=== PATIENT | male | born 1990 | race Caucasian/White ===

== ENCOUNTER 2023-06-09 14:52 | Outpatient (OUT) | payer BC, SELFPAY ==
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
== END 2023-06-09 14:53 | disposition home or self-care (01) ==
PROVIDERS: Visit Provider Podiatrist Foot & Ankle Surgery
DX: M79.672 Pain in left foot (principal)
CPT/HCPCS: 73630

== ENCOUNTER 2024-05-02 15:04 | Emergency (ER) | payer BC, SELFPAY ==
[2024-05-02 15:13] VITALS: BP 152/90; PULSE 78; O2SAT 99; BMI 29.0
--- OUTSIDE RECORDS SUMMARY | 2024-05-02 15:24 | XMS_ITS | CCD ---
Author Organization [facility] Inform ion Partnership [facility] Care Team Providers Care Family Resource Coordinator Name Role Phone HOY, NAVNEET Unavailable Unavailable HOY, NAVNEET Unavailable Unavailable HOY, NAVNEET Unavailable Unavailable HOY, NAVNEET Unavailable Unavailable HOY, NAVNEET Unavailable Unavailable Problems Problem Classification Problem Date Documented Date Episodic/Chronic Gastritis and duodenitis (4 sources) Gastritis, unspecified, without bleeding; Translations: [GASTRITIS UNS WITHOUT BLEEDING] Onset: 07-09-2018 Episodic Headache; including migraine (1 source) Headache; Translations: [HEADACHE] Onset: 07-22-2018 Episodic Noninfectious gastroenteritis (1 source) Noninfective gastroenteritis and colitis, unspecified; Translations: [NONINFECTIVE GE AND COLITIS UNS] Onset: 07-22-2018 Episodic Results Test Name Value Interpretation Reference Range Facil ity XR chest 1Von 08-29-2021 XR chest 1V [facility] Main [place] [id number] XRay Report Signed Patient: Adama Morocho MR#: [id number] : 1990 Acct:[id number] Age/Sex: 31 / M ADM Date: 08/29/21 Loc: [place] Room: Type: REG REF Attending Dr: Demian Uriarte Jr, DO Ordering Provider: Demian Uriarte DO Date of Service: 08/29/21 XR/XR chest 1V: EMPLOYMENT PHYSICAL Copies to: Demian Uriarte DO PA CHEST: CLINICAL HISTORY: Employment physical COMPARISON: None The heart is normal in size. The lungs are clear. No free air. XR/XR chest 1V IMPRESSION: NEGATIVE CHEST. Impression dictated by: Jose A Shane Jr., D.OGurpreet08/29/2021 2:32 PM Dictation Location: [place] [address] Transcribed By: [facility] 08/29/211431 Dictated By: Jose A Shane Jr, DO 08/29/21 143 Signed By: 08/29/21 143 [facility] AMYLASEon 07-09-2018 Amylase enzyme act/vol 60 U/L Normal 31-110 [facility] Comment on above: Performed By: #### C MP, LIPA, DEVAUGHN, TSH, T7 ####[facility] [address] [place], [place] [address]Xufypu Rhonda CBC AUTO DIFFon 07-09-2018 Basophils Auto #/vol (Bld) 0.0 103/ul Normal 0.0-0.1 [facility] Comment on above: Performed By: #### C BC ####[facility] [address] [place] [address]Twjlxe Rhonda Basophils/100 WBC Auto (Bld) 0.4 % Normal 0.2-2.0 [facility] Comment on above: Performed By: #### C BC ####[facility] [address] [place] [address]Whieae Rhonda Eosinophils Auto #/vol (Bld) 0.2 103/ul Normal 0.0-0.7 [facility] Comment on above: Performed By: #### C BC ####[facility] [address] [place] [address]Fznmss Rhonda Eosinophils/100 WBC Auto (Bld) 2.1 % Normal 0.9-7.0 [facility] Comment on above: Performed By: #### C BC ####[facility] [address] [place], [place] [address]Qksbku Rhonda Erythrocyte distribution width Auto Ratio (RBC) 12.8 % Normal 11.0-15.0 [facility] Comment on above: Performed By: #### C BC ####[facility] [address] [place] [address]Freoap Rhonda Hematocrit Auto Volume Fraction (Bld) 42.9 % Normal 42.0-54.0 [facility] Comment on above: Performed By: #### C BC ####[facility] [address] [place] [id number] Rhonda Hemoglobin mass conc (Bld) 15.3 g/dL Normal 14.0-18.0 [facility] Comment on above: Performed By: #### C BC ####[facility] [address] [place] [id number] Rhonda IG # 0.02 10e3/ul Normal 0.00-0.03 [facility] Comment on above: Performed By: #### C BC ####[facility] [address] [place] [address] Rhonda IG % 0.3 % Normal 0.0-0.5 [facility] Comment on above: Performed By: #### C BC ####[facility] [address] [place] [address] Rhonda Lymphocytes Auto #/vol (Bld) 2.3 103/ul Normal 1.2-3.8 [facility] Comment on above: Performed By: #### C BC ####[facility] [address] [place] [address] Rhonda Lymphocytes/100 WBC Auto (Bld) 32.0 % Normal 20.5-60.0 [facility] Comment on above: Performed By: #### C BC ####[facility] [address] [place] [address] Rhonda MANUAL DIFF REQ NO Normal [facility] Comment on above: Performed By: #### C BC ####[facility] [address] [place], [place] [address]Gerken Rhonda MCH Auto Entitic mass (RBC) 30.6 pg Normal 25.9-34.0 [facility] Comment on above: Performed By: #### C BC ####[facility] [address] [place] [address] Rhonda MCHC Auto mass conc (RBC) 35.7 g/dL Critically high 29.9-35.2 [facility] Comment on above: Performed By: #### C BC ####[facility] [address] [place], [place] [address]Qndwfb Rhonda MCV Auto Entitic volume (RBC) 85.8 fL Normal 80.0-94.0 [facility] Comment on above: Performed By: #### C BC ####[facility] [address] [place] [address]Sxxsou Rhonda Monocytes Auto #/vol (Bld) 0.7 103/ul Normal 0.3-0.8 [facility] Comment on above: Performed By: #### C BC ####[facility] [address] [place] [address]Csxhwd Rhonda Monocytes/100 WBC Auto (Bld) 9.5 % Normal 1.7-12.0 [facility] Comment on above: Performed By: #### C BC ####[facility] [address] [place] [address]Xcnixz Rhonda Neutrophils Auto #/vol (Bld) 4.0 103/ul Normal 1.4-6.5 [facility] Comment on above: Performed By: #### C BC ####[facility] [address] [place] [address]Ojlqsi Rhonda Neutrophils/100 WBC Auto (Bld) 55.7 % Normal 43.0-75.0 [facility] Comment on above: Performed By: #### C BC ####[facility] [address] [place] [address]Vojurg Rhonda Platelet mean volume Auto Entitic volume (Bld) 9.4 fL Critically low 9.5-13.5 [facility] Comment on above: Performed By: #### C BC ####[facility] [address] [place] [address]Czaiyq Rhonda Platelets Auto #/vol (Bld) 223 103/ul Normal 150-450 [facility] Comment on above: Performed By: #### C BC ####[facility] [address] [place] [address]Vfdyhz Rhonda RBC Auto #/vol (Bld) 5.00 106/ul Normal 4.70-6.10 [facility] Comment on above: Performed By: #### C BC ####[facility] U[address] WBC Auto #/vol (Bld) 7.2 103/ul Normal 4.0-11.0 [facility] Comment on above: Performed By: #### C BC ####[facility] [address] [place] [address] FREE THYROXINE INDEX T7on FTI 2.56 Normal [facility] Comment on above: Performed By: #### C MP, LIPA, DEVAUGHN, TSH, T7 ####[facility] [address] T3U 32.0 % Normal 23.5-40.5 [facility] Comment on above: Performed By: #### C MP, LIPA, DEVAUGHN, TSH, T7 ####[facility] [address] [place] [address] T4 8.00 ug/dL Normal 5.53-11.00 [facility] Comment on above: Performed By: #### C MP, LIPA, DEVAUGHN, TSH, T7 ####[facility] [address] [place] [address] GLYCOHEMOGLOBIN A1Con 2017 Glucose mass conc 97 mg/dL Normal [facility] Comment on above: Performed By: #### A 1C ####[facility] [address] [place] [address] Hemoglobin A1c/Hemoglobin.total mass fraction (Bld) 5.0 % Normal <=6.0 [facility] Comment on above: Performed By: #### A 1C ####[facility] [address] [place] [address] LIPASEon 07-09-2018 Lipase enzyme act/vol 192.0 U/L Normal 23.0-300.0 [facility] Comment on above: Performed By: #### C MP, LIPA, DEVAUGHN, TSH, T7 ####[facility] [address] [place], [place] [address]ken Rhonda PROF 14(COMP METB)on 018 Albumin mass conc 4.5 g/dL Normal 3.5-5.0 [facility] Comment on above: Performed By: #### C MP, LIPA, DEVAUGHN, TSH, T7 ####[facility] [address] Rhonda Albumin/Globulin mass ratio 1.5 {ratio} Normal [facility] Comment on above: Performed By: #### C MP, LIPA, DEVAUGHN, TSH, T7 ####[facility] Ttdmyszdfc7[address] Rhonda ALP enzyme act/vol 45 U/L Normal 38-126 [facility] Comment on above: Performed By: #### C MP, LIPA, DEVAUGHN, TSH, T7 ####[facility] Ywhflibcrz[address]64 [address] Rhonda ALT enzyme act/vol 45 U/L Normal 21-72 [facility] Comment on above: Performed By: #### C MP, LIPA, DEVAUGHN, TSH, T7 ####[facility] Rjzwzgrcgi8142 [address] Rhonda Anion gap 3 molar conc 11.7 mmol/L Normal [facility] Comment on above: Performed By: #### C MP, LIPA, DEVAUGHN, TSH, T7 ####[facility] Yolbtfvdxi5197 [address] Rhonda AST enzyme act/vol 26 U/L Normal 17-59 [facility] [place] [facility] Comment on above: Performed By: #### C MP, LIPA, DEVAUGHN, TSH, T7 ####[facility] Upjxalhdpg3350 [address] Rhonda Bilirubin Ql (U) 0.5 mg/dL Normal 0.2-1.3 [facility] Comment on above: Performed By: #### C MP, LIPA, DEVAUGHN, TSH, T7 ####[facility] [address] [place] [address]Gerken Rhonda Calcium mass conc 8.9 mg/dL Normal 8.4-10.2 [facility] Comment on above: Performed By: #### C MP, LIPA, DEVAUGHN, TSH, T7 ####[facility] Fpnhesoswg5684 [address] Rhonda Chloride molar conc 101 mmol/L Normal 98-107 [facility] Comment on above: Performed By: #### C MP, LIPA, DEVAUGHN, TSH, T7 ####[facility] Akup[address]jfuqm[address] Rhonda CO2 molar conc 26.5 mmol/L Normal 22.0-30.0 [facility] Comment on above: Performed By: #### C MP, LIPA, DEVAUGHN, TSH, T7 ####[facility] [address] [place] [address] Rhonda Creatinine mass conc 1.03 mg/dL Normal 0.66-1.25 [facility] Comment on above: Performed By: #### C MP, LIPA, DEVAUGHN, TSH, T7 ####[facility] Xplskzhzri[address] Rhonda EGFR-AF GRENADIAN >60 Normal >=60 [facility] Comment on above: Performed By: #### C MP, LIPA, DEVAUGHN, TSH, T7 ####[facility] Oyyrwrlwuo[address]353 [address] Rhonda EGFR-NON AF GRENADIAN >60 Normal >=60 [facility] Comment on above: Performed By: #### C MP, LIPA, DEVAUGHN, TSH, T7 ####[facility] Cejtziagpy[address]73 [address] Rhonda Globulin Calculated mass conc (S) 3.1 g/dL Normal [facility] Comment on above: Performed By: #### C MP, LIPA, DEVAUGHN, TSH, T7 ####[facility] Kabigp[address]uo[address] Rhonda Glucose mass conc 98 mg/dL Normal 74-106 [facility] Comment on above: Performed By: #### C MP, LIPA, DEVAUGHN, TSH, T7 ####[facility] Fzhavug[address]zs[address] Rhonda Potassium molar conc 4.2 mmol/L Normal 3.4-5.0 [facility] Comment on above: Performed By: #### C MP, LIPA, DEVAUGHN, TSH, T7 ####[facility] Oee[address]zt[address]14 [address] Rhonda Protein mass conc 7.6 g/dL Normal 6.1-8.2 [facility] Comment on above: Performed By: #### C MP, LIPA, DEVAUGHN, TSH, T7 ####[facility] Etdofuejdb[address] Rhonda Sodium molar conc 135 mmol/L Critically low 137-145 [facility] Comment on above: Performed By: #### C MP, LIPA, DEVAUGHN, TSH, T7 ####[facility] [address] [place] [address] Rhonda Urea nitrogen mass conc 18.0 mg/dL Normal 9.0-20.0 [facility] Comment on above: Performed By: #### C MP, LIPA, DEVAUGHN, TSH, T7 ####[facility] [address] [place] [address] Rhonda Urea nitrogen/Creatinine mass ratio 17.5 mg/mg Normal [facility] Comment on above: Performed By: #### C MP, LIPA, DEVAUGHN, TSH, T7 ####[facility] [address] [place] [address] Rhonda TSHon 07-09-2018 Thyrotropin Qn 1.741 uIU/mL Normal 0.470-4.680 [facility] Comment on above: Performed By: #### C MP, LIPA, DEVAUGHN, TSH, T7 ####[facility] [address] [place] [address] Rhonda Thyrotropin Qn SEE BELOW Normal [facility] Comment on above: Result Comment: <0.3 4 UIU/ml HYPERTHYROID 0.34-5.60 UIU/ml EUTHYROID >5.60 UIU/ml HYPOTHYROID Performed By: #### C MP, LIPA, DEVAUGHN, TSH, T7 ####[facility] [address] [place], [place] [address]XeeooeStacia Ellis Encounters Encounter Date Encounter Type Care Provider Facility Start: 07-09-2018 End: 07-10-2018 Patient encounter procedure NAVNEET MARTINEZ Facility:[facility] Start: 02-24-2018 Patient encounter procedure NAVNEET MARTINEZ Facility:[facility] Payers Date Payer Category Payer Unknown [id number] 1990 Unknown [id number] 1958 Private Health Insurance [id number] Summary Purpose Family History No Family History Records FoundNo Family History Records Found Advance Directives No Advanced Directives Records FoundNo Advanced Directives Records Found Additional Source Comments (unrecognized sect ion and content) No Status Records FoundNo Status Records Found INFORMATION SOURCE (unrecogn ized section and content) DATE CREATED AUTHOR 07/23/2018 [facility] DATE CREATED AUTHOR AUTHOR'S ORGANIZ ATION 09/30/2021 [facility] FOR RECORDS PERTAINING TO PATIENTS WHO ARE OR HAVE BEEN ENROLLED IN A CHEMICAL DEPENDENCY/SUBSTANCEABUSE PROGRAM, SOME INFORMATION MAY BE OMITTED. This clinical summary was aggregated from multiple sources. Caution should be exercised in using it in the provision of clinical care. This summary normalizes information from multiple sources, and as a consequence, information in this document may materially change the coding, format and clinical context of patient data. In addition, data may be omitted in some cases. CLINICAL DECISIONS SHOULD BE BASED ON THE PRIMARY CLINICAL RECORDS. [employer] provides no warranty or guarantee of the accuracy or completeness of information in this document.
[2024-05-02] MEDS: LIDOCAINE HCL 1%-EPINEPHRINE 1:100,000 20 ML MDV INJ (15:38)
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
[2024-05-02] MEDS: BACITRACIN 0.9 GM PACKET 1 PACKET TOPICAL (15:39)
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
== END 2024-05-02 16:30 | disposition home or self-care (01) ==
PROVIDERS: Emergency Provider Emergency Medicine; PCP Family Medicine
DX: S81.811A Laceration without foreign body, right lower leg, initial encounter (principal); W26.8XXA Contact with other sharp object(s), not elsewhere classified, initial encounter
CPT/HCPCS: 12002; 73590; 99284

== ENCOUNTER 2024-05-19 17:17 | Emergency (ER) | payer BC, SELFPAY ==
--- NOTE | 2024-05-19 17:18 | CT_ITS ---
[address] [address] Patient Name: MARCOS GONZALEZ MRN: [id number] date: 1990 Sex: M Assigned Patient Location: ER Current Patient Location: ER Accession/Order Number: [id number] Exam Date: 05/19/2024 17:49 Report Date: 05/19/2024 19:17 At the request of: BREE OSULLIVAN Procedure: CT abdomen pelvis w con Indication: Right lower quadrant pain. Comparison: None Procedure: Axial images were made from the diaphragms through the symphysis pubis. No oral was given prior to scanning. 100 mL Omnipaque 300 Intravenous contrast was given. Dose reduction techniques were achieved by using automated exposure control and/or adjustment of mA and/or kV according to patient size and/or use of iterative reconstruction technique. Findings: Liver/Biliary System: No liver masses. No intra or extrahepatic biliary dilatation. No gallstones or cholecystitis. Pancreas/Spleen: No evidence of acute pancreatitis. Pancreatic duct is not dilated. No pancreatic lesions are seen. No splenomegaly or splenic masses. Kidneys/Adrenals: Normal symmetrical nephrograms. No renal masses. No renal or ureteral stones are seen. No hydronephrosis or hydroureter bilaterally. No adrenal nodules. Aorta/Vessels: No evidence of aortic aneurysm. Patent IVC, renal veins, hepatic veins and portal venous system. Bowel/Fluid/Nodes: No bowel dilatation or bowel wall thickening. No evidence of bowel obstruction. Colonic diverticulosis with no evidence of diverticulitis. Normal appendix. No ascites or fluid collections. No adenopathy. Lung bases: Clear. Other findings: No aggressive osseous lesions are seen. Pelvis: No pelvic masses or adenopathy. No free fluid seen in the pelvis. Bladder, seminal vesicles and prostate are unremarkable. Other Findings: No aggressive osseous lesions are seen. CT/CT abdomen pelvis w con Impression: 1. No evidence of acute abdominal or pelvic process. No CT findings to explain patient's abdominal pain. 2. Colonic diverticulosis. Electronically authenticated by: ANA BOWEN Date: 05/19/2024 19:17
[2024-05-19 17:22] VITALS: BP 158/96; PULSE 77; TEMP 36.7; O2SAT 99; BMI 32.1
--- NOTE | 2024-05-19 17:30 | ED_ITS ---
HPI - Abdominal Pain General Chief Complaint: Abdominal Pain Stated Complaint: POSS APPENDICITIS-DR CORONA SENT OVER Time Seen by Provider: 05/19/24 17:18 Source: patient Mode of arrival: walk-in Limitations: no limitations History of Present Illness HPI narrative: Patient presents to ED complaining of right lower quadrant abdominal pain. He said the pain was hurting since today at work. He was going up and down ladders and ramps and started to feel the pain. He does not know if he strained something at work but he said the pain just would not really go away. He was trying to ignore it but it seemed to get a little more intense tonight. Patient saw Dr. Corona and Dr. Corona called and sent him over to rule out acute appendicitis. Patient does still have his appendix. He does not have any pain into the testi everardo. No flank pain. Mild nausea no vomiting. He denies any fevers. Alert and oriented no acute distress no other complaints at this time Related Data Previous Rx's ?Medication ?Instructions ?Recorded cephalexin 500 mg capsule 500 mg PO Q8H 10 days #30 caps 05/02/24 Allergies Allergy/AdvReac Type Severity Reaction Status Date / Time Penicillins AdvReac Severe Unknown Verified 05/02/24 15:13 Review of Systems ROS Status of ROS 10 or more systems reviewed and unremark able except as noted in history and below [facility] Social History Little interest or pleasure in doing things: not at all Feeling down, depressed, or hopeless: not at all Exam Narrative Exam Narrative: Time Seen: [] Vital Signs: [Per nurse's notes.] General: [Alert] Skin: [Warm, dry, no rash.] Head: [Normocephalic, atraumatic.] Neck: [Supple, trachea midline.] Eye: [Pupils are equal, round and reactive to light, extraocular movements are intact, normal conjunctiva.] Ears, nose, mouth and throat: oral mucosa moist. Cardiovascular: [Regular rate and rhythm, no murmur.] Respiratory: [Lungs are clear to auscultation, respirations are non-labored, breath sounds are equal.] Chest wall: [No tenderness, no deformity.] Gastrointestinal: Tenderness periumbilical and right lower quadrant. Positive Rovsing sign. Mild guarding MSK: 5 out of 5 muscle strength x 4 extremities no calf pain or edema Lymphatics: [No lymphadenopathy.] Psychiatric: [Cooperative, appropriate mood & affect.] Neurological: [Alert and oriented to person, place, time, and situation, no focal neurological deficit observed.] Constitutional Vital Signs, click to edit/add: Last Vital Signs Temp 98.1 F 05/19/24 17:22 Pulse 61 05/19/24 20:00 Resp 18 05/19/24 20:00 BP 143/91 H 05/19/24 20:00 Pulse Ox 98 05/19/24 20:00 O2 Del Method Room Air 05/19/24 20:00 Course Vital Signs Vital signs: Vital Signs Temperature 98.1 F 05/19/24 17:22 Pulse Rate 77 05/19/24 17:22 Respiratory Rate 18 05/19/24 17:22 Blood Pressure 158/96 H 05/19/24 17:22 Pulse Oximetry 99 05/19/24 17:22 Oxygen Delivery Method Room Air 05/19/24 17:22 Temperature 98.1 F 05/19/24 17:22 Pulse Rate 61 05/19/24 20:00 Respiratory Rate 18 05/19/24 20:00 Blood Pressure 143/91 H 05/19/24 20:00 Pulse Oximetry 98 05/19/24 20:00 Oxygen Delivery Method Room Air 05/19/24 20:00 MDM - Abdominal Pain MDM Narrative Medical decision making narrative: Patient was signed out to Dr. Goode pending final CT scan results and final disposition planning. Patient was stable when I left the ED. Disposition will depend on results of CT scan. Dr. Goode will follow Differential Diagnosis Differential diagnosis: Likely abdominal pain, acute appendicitis, calculus of kidney, constipation and diverticulitis Lab Data Labs: Lab Results 05/19/24 Range/Units 17:30 WBC 7.6 (4.0-11.0) 10^3/uL RBC 5.48 (4.70-6.10) 10^6/uL Hgb 16.9 (14.0-18.0) g/dL Hct 46.7 (42.0-54.0) % MCV 85.2 (80.0-94.0) fL MCH 30.8 (25.9-34.0) pg MCHC 36.2 H (29.9-35.2) g/dL RDW 12.5 (11.0-15.0) % Plt Count 258 (150-450) 10^3/uL MPV 9.6 (9.5-13.5) fL Neut % (Auto) 59.2 (43.0-75.0) % Lymph % (Auto) 30.7 (20.5-60.0) % [place] % (Auto) 8.8 (1.7-12.0) % Eos % (Auto) 0.9 (0.9-7.0) % Baso % (Auto) 0.3 (0.2-2.0) % Neut # (Auto) 4.5 (1.4-6.5) 10^3/uL Lymph # (Auto) 2.3 (1.2-3.8) 10^3/uL [place] # (Auto) 0.7 (0.3-0.8) 10^3/uL Eos # (Auto) 0.1 (0.0-0.7) 10^3/uL Baso # (Auto) 0.0 (0.0-0.1) 10^3/uL Abs Immat Gran (auto) 0.01 (0.00-0.03) 10^3/uL Imm/Tot Granulo (auto) 0.1 (0.0-0.5) % Sodium 139 (136-145) mmol/L Potassium 3.9 (3.5-5.1) mmol/L Chloride 103 (98-107) mmol/L Carbon Dioxide 23.9 (21.0-32.0) mmol/L Anion Gap 16.0 BUN 20.0 H (7.0-18.0) mg/dL Creatinine 1.19 (0.70-1.30) mg/dL Est GFR ( Amer) >60 (>=60 mL/min/1.73m^2) Est GFR (Non-Af Amer) >60 (>=60 mL/min/1.73m^2) BUN/Creatinine Ratio 16.8 Glucose 114 H (74-106) mg/dL Calcium 9.5 (8.5-10.1) mg/dL Total Bilirubin 0.4 (0.2-1.0) mg/dL AST 23 (15-37) U/L ALT 52 (16-63) U/L Alkaline Phosphatase 52 (46-116) U/L Total Protein 8.0 (6.4-8.2) g/dL Albumin 4.4 (3.4-5.0) g/dL Globulin 3.6 g/dL Albumin/Globulin Ratio 1.2 Discharge Plan Discharge Chief Complaint: Abdominal Pain Clinical Impression: Abdominal pain Patient Disposition: Home, Self-Care Time of Disposition Decision: 19:30 Condition: Good Prescriptions / Home Meds: No Action cephalexin 500 mg capsule 500 mg PO Q8H 10 Days Qty: 30 0RF Print Language: [place] Instructions: Abdominal Pain (ED) Referrals: Andre Corona MD [Primary Care Provider] - 1 week Discharge Date/Time: 05/19/24 20:00
[2024-05-19 17:50] LABS: Basophils Percent Auto 0.3 % (0.2-2.0); Eosinophils Absolute Auto 0.1 10^3/uL (0.0-0.7); Eosinophils Percent Auto 0.9 % (0.9-7.0); Hematocrit 46.7 % (42.0-54.0); Hemoglobin 16.9 g/dL (14.0-18.0); Immature Granulocytes Abs Auto 0.01 10^3/uL (0.00-0.03); Immature Granulocytes Pct Auto 0.1 % (0.0-0.5); Lymphocytes Absolute Auto 2.3 10^3/uL (1.2-3.8); Lymphocytes Percent Auto 30.7 % (20.5-60.0); Mean Corpuscular HGB Conc 36.2 g/dL (29.9-35.2); Mean Corpuscular Hemoglobin 30.8 pg (25.9-34.0); Mean Corpuscular Volume 85.2 fL (80.0-94.0); Mean Platelet Volume 9.6 fL (9.5-13.5); Monocytes Absolute Auto 0.7 10^3/uL (0.3-0.8); Monocytes Percent Auto 8.8 % (1.7-12.0); Neutrophils Absolute Auto 4.5 10^3/uL (1.4-6.5); Neutrophils Percent Auto 59.2 % (43.0-75.0); Platelet Count 258 10^3/uL (150-450); Red Blood Count 5.48 10^6/uL (4.70-6.10); Red Cell Distribution Width 12.5 % (11.0-15.0); White Blood Count 7.6 10^3/uL (4.0-11.0)
[2024-05-19 18:01] LABS: Alanine Aminotransferase 52 U/L (16-63); Albumin Globulin Ratio 1.2; Albumin Level 4.4 g/dL (3.4-5.0); Alkaline Phosphatase 52 U/L (46-116); Aspartate Amino Transferase 23 U/L (15-37); BUN Creatinine Ratio 16.8; Bilirubin Total 0.4 mg/dL (0.2-1.0); Calcium 9.5 mg/dL (8.5-10.1); Carbon Dioxide 23.9 mmol/L (21.0-32.0); Chloride 103 mmol/L (98-107); Estimated GFR (African America >60 (>=60 mL/min/1.73m^2); Estimated GFR (Non-African Ame >60 (>=60 mL/min/1.73m^2); Globulin 3.6 g/dL; Glucose 114 mg/dL (74-106); Potassium 3.9 mmol/L (3.5-5.1); Sodium 139 mmol/L (136-145)
--- NOTE | 2024-05-19 19:25 | ED_ITS ---
HPI - Abdominal Pain General Chief Complaint: Abdominal Pain Stated Complaint: POSS APPENDICITIS-DR CORONA SENT OVER Time Seen by Provider: 05/19/24 17:18 Source: patient Mode of arrival: walk-in Limitations: no limitations History of Present Illness HPI narrative: This 34-year-old male was signed out to me at shift change. He was referred to the emergency department from Dr. Corona's office for right lower quadrant a bdominal pain. He was seen and examined. He is well-appearing. He denies that he has had any anorexia. He has just had some pain in the right lower quadrant. He denies any nausea vomiting or diarrhea. I reviewed his labs. He has a normal white count. Electrolytes are normal. CT scan of the abdomen pelvis is included in the body of this report and shows normal findings including a normal appendix. The results of the CT scan were discussed with the patient and he was given a copy. He will be discharged home with a prescription for ibuprofen and Bentyl. Related Data Previous Rx's ?Medication ?Instructions ?Recorded cephalexin 500 mg capsule 500 mg PO Q8H 10 days #30 caps 05/02/24 Allergies Allergy/AdvReac Type Severity Reaction Status Date / Time Penicillins AdvReac Severe Unknown Verified 05/02/24 15:13 PFSH PFSH Social History Little interest or pleasure in doing things: not at all Feeling down, depressed, or hopeless: not at all Exam Constitutional Vital Signs, click to edit/add: Last Vital Signs Temp 98.1 F 05/19/24 17:22 Pulse 77 05/19/24 17:22 Resp 18 05/19/24 17:22 BP 158/96 H 05/19/24 17:22 Pulse Ox 99 05/19/24 17:22 O2 Del Method Room Air 05/19/24 17:22 Course Vital Signs Vital signs: Vital Signs Temperature 98.1 F 05/19/24 17:22 Pulse Rate 77 05/19/24 17:22 Respiratory Rate 18 05/19/24 17:22 Blood Pressure 158/96 H 05/19/24 17:22 Pulse Oximetry 99 05/19/24 17:22 Oxygen Delivery Method Room Air 05/19/24 17:22 Temperature 98.1 F 05/19/24 17:22 Pulse Rate 77 05/19/24 17:22 Respiratory Rate 18 05/19/24 17:22 Blood Pressure 158/96 H 05/19/24 17:22 Pulse Oximetry 99 05/19/24 17:22 Oxygen Delivery Method Room Air 05/19/24 17:22 MDM - Abdominal Pain MDM Narrative Medical decision making narrative: [place] [address] CT Scan Report Signed Patient: MARCOS GONZALEZ MR#: [id number] : 1990 Acct:[id number] Age/Sex: 34 / M ADM Date: 05/19/24 Loc: ER Attending Dr: Ordering Physician: Bree Hodgson D.O. Date of Service: 05/19/24 Procedure(s): CT abdomen pelvis w con Accession Number(s): [id number] cc: Andre Corona M.D.~ [facility] [place] [address] Patient Name: MARCOS GONZALEZ MRN: [id number] date: 1990 Sex: M Assigned Patient Location: ER Current Patient Location: ER Accession/Order Number: [id number] Exam Date: 05/19/2024 17:49 Report Date: 05/19/2024 19:17 At the request of: BREE HODGSON Procedure: CT abdomen pelvis w con Indication: Right lower quadrant pain. Comparison: None Procedure: Axial images were made from the diaphragms through the symphysis pubis. No oral was given prior to scanning. 100 mL Omnipaque 300 Intravenous contrast was given. Dose reduction techniques were achieved by using automated exposure control and/or adjustment of mA and/or kV according to patient size and/or use of iterative reconstruction technique. Findings: Liver/Biliary System: No liver masses. No intra or extrahepatic biliary dilatation. No gallstones or cholecystitis. Pancreas/Spleen: No evidence of acute pancreatitis. Pancreatic duct is not dilated. No pancreatic lesions are seen. No splenomegaly or splenic masses. Kidneys/Adrenals: Normal symmetrical nephrograms. No renal masses. No renal or ureteral stones are seen. No hydronephrosis or hydroureter bilaterally. No adrenal nodules. Aorta/Vessels: No evidence of aortic aneurysm. Patent IVC, renal veins, hepatic veins and portal venous system. Bowel/Fluid/Nodes: No bowel dilatation or bowel wall thickening. No evidence of bowel obstruction. Colonic diverticulosis with no evidence of diverticulitis. Normal appendix. No ascites or fluid collections. No adenopathy. Lung bases: Clear. Other findings: No aggressive osseous lesions are seen. Pelvis: No pelvic masses or adenopathy. No free fluid seen in the pelvis. Bladder, seminal vesicles and prostate are unremarkable. Other Findings: No aggressive osseous lesions are seen. CT/CT abdomen pelvis w con Impression: 1. No evidence of acute abdominal or pelvic process. No CT findings to explain patient's abdominal pain. 2. Colonic diverticulosis. Electronically authenticated by: ANA BOWEN Date: 05/19/2024 19:1 Lab Data Labs: Lab Results 05/19/24 Range/Units 17:30 WBC 7.6 (4.0-11.0) 10^3/uL RBC 5.48 (4.70-6.10) 10^6/uL Hgb 16.9 (14.0-18.0) g/dL Hct 46.7 (42.0-54.0) % MCV 85.2 (80.0-94.0) fL MCH 30.8 (25.9-34.0) pg MCHC 36.2 H (29.9-35.2) g/dL RDW 12.5 (11.0-15.0) % Plt Count 258 (150-450) 10^3/uL MPV 9.6 (9.5-13.5) fL Neut % (Auto) 59.2 (43.0-75.0) % Lymph % (Auto) 30.7 (20.5-60.0) % [place] % (Auto) 8.8 (1.7-12.0) % Eos % (Auto) 0.9 (0.9-7.0) % Baso % (Auto) 0.3 (0.2-2.0) % Neut # (Auto) 4.5 (1.4-6.5) 10^3/uL Lymph # (Auto) 2.3 (1.2-3.8) 10^3/uL [place] # (Auto) 0.7 (0.3-0.8) 10^3/uL Eos # (Auto) 0.1 (0.0-0.7) 10^3/uL Baso # (Auto) 0.0 (0.0-0.1) 10^3/uL Abs Immat Gran (auto) 0.01 (0.00-0.03) 10^3/uL Imm/Tot Granulo (auto) 0.1 (0.0-0.5) % Sodium 139 (136-145) mmol/L Potassium 3.9 (3.5-5.1) mmol/L Chloride 103 (98-107) mmol/L Carbon Dioxide 23.9 (21.0-32.0) mmol/L Anion Gap 16.0 BUN 20.0 H (7.0-18.0) mg/dL Creatinine 1.19 (0.70-1.30) mg/dL Est GFR ( Amer) >60 (>=60 mL/min/1.73m^2) Est GFR (Non-Af Amer) >60 (>=60 mL/min/1.73m^2) BUN/Creatinine Ratio 16.8 Glucose 114 H (74-106) mg/dL Calcium 9.5 (8.5-10.1) mg/dL Total Bilirubin 0.4 (0.2-1.0) mg/dL AST 23 (15-37) U/L ALT 52 (16-63) U/L Alkaline Phosphatase 52 (46-116) U/L Total Protein 8.0 (6.4-8.2) g/dL Albumin 4.4 (3.4-5.0) g/dL Globulin 3.6 g/dL Albumin/Globulin Ratio 1.2 Discharge Plan Discharge Chief Complaint: Abdominal Pain Clinical Impression: Abdominal pain Patient Disposition: Home, Self-Care Time of Disposition Decision: 19:30 Condition: Good Prescriptions / Home Meds: No Action cephalexin 500 mg capsule 500 mg PO Q8H 10 Days Qty: 30 0RF Print Language: Finnish Instructions: Abdominal Pain (ED) Referrals: Andre Corona MD [Primary Care Provider] - 1 week
[2024-05-19 20:00] VITALS: BP 143/91; PULSE 61; O2SAT 98
== END 2024-05-19 20:00 | disposition home or self-care (01) ==
PROVIDERS: Emergency Medicine; Emergency Provider Emergency Medicine; PCP Family Medicine
DX: R10.9 Unspecified abdominal pain (principal)
CPT/HCPCS: 36415; 74177; 80053; 85025; 99285; Q9967

== ENCOUNTER 2024-12-14 08:56 | Outpatient (OUT) | payer BC, SELFPAY ==
[2024-12-14 07:33] LABS: Basophils Percent Auto 0.5 % (0.2-2.0); Eosinophils Absolute Auto 0.1 10^3/uL (0.0-0.7); Eosinophils Percent Auto 1.4 % (0.9-7.0); Hemoglobin 15.5 g/dL (14.0-18.0); Immature Granulocytes Abs Auto 0.01 10^3/uL (0.00-0.03); Immature Granulocytes Pct Auto 0.2 % (0.0-0.5); Lymphocytes Absolute Auto 1.7 10^3/uL (1.2-3.8); Lymphocytes Percent Auto 37.4 % (20.5-60.0); Mean Platelet Volume 9.1 fL (9.5-13.5); Monocytes Absolute Auto 0.6 10^3/uL (0.3-0.8); Monocytes Percent Auto 13.2 % (1.7-12.0); Neutrophils Absolute Auto 2.1 10^3/uL (1.4-6.5); Neutrophils Percent Auto 47.3 % (43.0-75.0); Platelet Count 219 10^3/uL (150-450); White Blood Count 4.4 10^3/uL (4.0-11.0)
[2024-12-14 07:48] LABS: Estimated Average Glucose 100 mg/dL; Glycohemoglobin A1C 5.1 % (4.5-6.2)
[2024-12-14 08:00] LABS: Alanine Aminotransferase 50 U/L (16-63); Albumin Globulin Ratio 1.3; Albumin Level 4.1 g/dL (3.4-5.0); Alkaline Phosphatase 50 U/L (46-116); Anion Gap 11.8; Aspartate Amino Transferase 22 U/L (15-37); BUN Creatinine Ratio 13.1; Bilirubin Total 0.6 mg/dL (0.2-1.0); Carbon Dioxide 28.4 mmol/L (21.0-32.0); Chloride 104 mmol/L (98-107); Chol HDL Ratio 3.2; Cholesterol 161 mg/dL (<=200); Estimated GFR (African America >60 (>=60 mL/min/1.73m^2); Estimated GFR (Non-African Ame >60 (>=60 mL/min/1.73m^2); Free T3 2.83 pg/mL (2.18-3.98); Globulin 3.2 g/dL; Glucose 105 mg/dL (74-106); HDL Cholesterol 50 mg/dL (40-60); LDL Cholesterol Calculated 93.4 mg/dL; Potassium 4.2 mmol/L (3.5-5.1); Sodium 140 mmol/L (136-145); Thyroid Stimulating Hormone 2.386 uIU/mL (0.358-3.740); Total Protein 7.3 g/dL (6.4-8.2); Triglycerides 88 mg/dL (<=150); VLDL CHOLESTEROL 17.6 mg/dL
[2024-12-14 09:30] LABS: Prostate Specific Antigen Scrn 0.65 ng/mL (<=4.00)
[2024-12-15 04:08] LABS: Testosterone 702 ng/dL (264-916)
--- OUTSIDE RECORDS SUMMARY | 2024-12-16 09:04 | XMS_ITS | CCD ---
Author Organization [place] [facility] Care Team Providers Care Wireless Technician Name Role Phone HOY, NAVNEET Unavailable Unavailable [...] XR chest 1Von 08-29-2021 XR chest 1V [facility] Main [place] [id number] XRay Report Signed Patient: Adama Morocho MR#: [id number] : 1990 Acct:[id number] Age/Sex: 31 / M ADM Date: 08/29/21 [...] Shane Jr., D.OGurpreet08/29/2021 2:32 PM Dictation Location: [place] [address] Transcribed By: [facility] 08/29/211431 Dictated By: Jose A Shane Jr, DO 08/29/21 143 Signed By: 08/29/21 143 [facility] AMYLASEon 07-09-2018 Amylase enzyme act/vol 60 U/L Normal 31-110 [facility] Comment on above: Performed By: #### C MP, LIPA, DEVAUGHN, TSH, T7 ####[facility] [address] [place], [place] [address]Qrmwir Rhonda CBC AUTO DIFFon 07-09-2018 Basophils Auto #/vol (Bld) 0.0 103/ul Normal 0.0-0.1 [facility] Comment on above: Performed By: #### C BC ####[facility] [address] [place] [address]Qxsngj Rhonda Basophils/100 WBC Auto (Bld) 0.4 % Normal 0.2-2.0 [facility] Comment on above: Performed By: #### C BC ####[facility] [address] [place] [address]Jpdzpw Rhonda Eosinophils Auto #/vol (Bld) 0.2 103/ul Normal 0.0-0.7 [facility] Comment on above: Performed By: #### C BC ####[facility] Ab[address]sy[address] [place] [address]Nhyryd Rhonda Eosinophils/100 WBC Auto (Bld) 2.1 % Normal 0.9-7.0 [facility] Comment on above: Performed By: #### C BC ####[facility] [address] [place], [place] [address]Miujlx Rhonda Erythrocyte distribution width Auto Ratio (RBC) 12.8 % Normal 11.0-15.0 [facility] Comment on above: Performed By: #### C BC ####[facility] [address] [place] [address] 332[address]Bdhzqm Rhonda Hematocrit Auto Volume Fraction (Bld) 42.9 % Normal 42.0-54.0 [facility] [place] [facility] Comment on above: Performed By: #### C BC ####[facility] [address] [place] [id number] Rhonda Hemoglobin mass conc (Bld) 15.3 g/dL Normal 14.0-18.0 [facility] Comment on above: Performed By: #### C BC ####[facility] [address] [place] [id number] Rhonda IG # 0.02 10e3/ul Normal 0.00-0.03 [facility] Comment on above: Performed By: #### C BC ####[facility] [address] [place] [address] Rhonda IG % 0.3 % Normal 0.0-0.5 [facility] Comment on above: Performed By: #### C BC ####[facility] [address] [place] [address] Rhonda Lymphocytes Auto #/vol (Bld) 2.3 103/ul Normal 1.2-3.8 [facility] Comment on above: Performed By: #### C BC ####[facility] [address] [place] [address] Rhonda Lymphocytes/100 WBC Auto (Bld) 32.0 % Normal 20.5-60.0 [facility] Comment on above: Performed By: #### C BC ####[facility] [address] [place] [address] Rhonda MANUAL DIFF REQ NO Normal [facility] Comment on above: Performed By: #### C BC ####[facility] [address] [place], [place] [address]Gerken Rhonda MCH Auto Entitic mass (RBC) 30.6 pg Normal 25.9-34.0 [facility] Comment on above: Performed By: #### C BC ####[facility] [address] [place] [address] Rhonda MCHC Auto mass conc (RBC) 35.7 g/dL Critically high 29.9-35.2 [facility] Comment on above: Performed By: #### C BC ####[facility] [address]ir[address] [place], [place] [address]Cavbld Rhonda MCV Auto Entitic volume (RBC) 85.8 fL Normal 80.0-94.0 [facility] Comment on above: Performed By: #### C BC ####[facility] F[address] [place] [address] 9[address]Skdldc Rhonda Monocytes Auto #/vol (Bld) 0.7 103/ul Normal 0.3-0.8 [facility] Comment on above: Performed By: #### C BC ####[facility] [address] [place] [address]Idxybq Rhonda Monocytes/100 WBC Auto (Bld) 9.5 % Normal 1.7-12.0 [facility] Comment on above: Performed By: #### C BC ####[facility] [address] [place] [address]Muitgd Rhonda Neutrophils Auto #/vol (Bld) 4.0 103/ul Normal 1.4-6.5 [facility] Comment on above: Performed By: #### C BC ####[facility] [address] [place] [address]Tdwuzi Rhonda Neutrophils/100 WBC Auto (Bld) 55.7 % Normal 43.0-75.0 [facility] Comment on above: Performed By: #### C BC ####[facility] [address] [place] [address]Pktsal Rhonda Platelet mean volume Auto Entitic volume (Bld) 9.4 fL Critically low 9.5-13.5 [facility] Comment on above: Performed By: #### C BC ####[facility] Z[address] [place] [address]Hckcgx Rhonda Platelets Auto #/vol (Bld) 223 103/ul Normal 150-450 [facility] Comment on above: Performed By: #### C BC ####[facility] [address] [place] [address] 666[address]Urcuvd Rhonda RBC Auto #/vol (Bld) 5.00 106/ul Normal 4.70-6.10 [facility] Comment on above: Performed By: #### C BC ####[facility] Noripquajp6125 [address] WBC Auto #/vol (Bld) 7.2 103/ul Normal 4.0-11.0 [facility] Comment on above: Performed By: #### C BC ####[facility] [address] [place] [address] FREE THYROXINE INDEX T7on FTI 2.56 Normal [facility] Comment on above: Performed By: #### C MP, LIPA, DEVAUGHN, TSH, T7 ####[facility] Njnbb[address]ctup1115 [address] T3U 32.0 % Normal 23.5-40.5 [facility] Comment on above: Performed By: #### C MP, LIPA, DEVAUGHN, TSH, T7 ####[facility] [address] [place] [address] T4 8.00 ug/dL Normal 5.53-11.00 [facility] Comment on above: Performed By: #### C MP, LIPA, DEVAUGHN, TSH, T7 ####[facility] [address] [place] [address] GLYCOHEMOGLOBIN A1Con 2017 Glucose mass conc 97 mg/dL Normal [facility] Comment on above: Performed By: #### A 1C ####[facility] [address] [place] [address] Hemoglobin A1c/Hemoglobin.total mass fraction (Bld) 5.0 % Normal <=6.0 [facility] Comment on above: Performed By: #### A 1C ####[facility] [address] [place] [address] LIPASEon 07-09-2018 Lipase enzyme act/vol 192.0 U/L Normal 23.0-300.0 [facility] Comment on above: Performed By: #### C MP, LIPA, DEVAUGHN, TSH, T7 ####[facility] [address] [place], [place] [address] Rhonda PROF 14(COMP METB)on 018 Albumin mass conc 4.5 g/dL Normal 3.5-5.0 [facility] Comment on above: Performed By: #### C MP, LIPA, DEVAUGHN, TSH, T7 ####[facility] Otqfsfunsb2836 [address] Rhonda Albumin/Globulin mass ratio 1.5 {ratio} Normal [facility] Comment on above: Performed By: #### C MP, LIPA, DEVAUGHN, TSH, T7 ####[facility] Amcxehxeoq3842 [address] Rhonda ALP enzyme act/vol 45 U/L Normal 38-126 [facility] Comment on above: Performed By: #### C MP, LIPA, DEVAUGHN, TSH, T7 ####[facility] Ovvxzpexwi8546 [address] Rhonda ALT enzyme act/vol 45 U/L Normal 21-72 [facility] Comment on above: Performed By: #### C MP, LIPA, DEVAUGHN, TSH, T7 ####[facility] Dotlygfolx3711 [address] Rhonda Anion gap 3 molar conc 11.7 mmol/L Normal [facility] Comment on above: Performed By: #### C MP, LIPA, DEVAUGHN, TSH, T7 ####[facility] Hlkvexfbke6771 [address] Rhonda AST enzyme act/vol 26 U/L Normal 17-59 [facility] Comment on above: Performed By: #### C MP, LIPA, DEVAUGHN, TSH, T7 ####[facility] Qkjuzhoefd8337 [address] Rhonda Bilirubin Ql (U) 0.5 mg/dL Normal 0.2-1.3 [facility] Comment on above: Performed By: #### C MP, LIPA, DEVAUGHN, TSH, T7 ####[facility] [address] [place] [id number] Rhonda Calcium mass conc 8.9 mg/dL Normal 8.4-10.2 [facility] Comment on above: Performed By: #### C MP, LIPA, DEVAUGHN, TSH, T7 ####[facility] Uoqdfymmju[address]37 [address] Rhonda Chloride molar conc 101 mmol/L Normal 98-107 [facility] Comment on above: Performed By: #### C MP, LIPA, DEVAUGHN, TSH, T7 ####[facility] Mfnhrcyein5045 [address] Rhonda CO2 molar conc 26.5 mmol/L Normal 22.0-30.0 [facility] Comment on above: Performed By: #### C MP, LIPA, DEVAUGHN, TSH, T7 ####[facility] [address] [place] [address] Rhonda Creatinine mass conc 1.03 mg/dL Normal 0.66-1.25 [facility] Comment on above: Performed By: #### C MP, LIPA, DEVAUGHN, TSH, T7 ####[facility] Dyfkuaysne7202 [address] Rhonda EGFR-AF CITIZ[place] >60 Normal >=60 [facility] Comment on above: Performed By: #### C MP, LIPA, DEVAUGHN, TSH, T7 ####[facility] Cujdspuqvf1696 [address] Rhonda EGFR-NON AF CITIZEN [place] >60 Normal >=60 [facility] Comment on above: Performed By: #### C MP, LIPA, DEVAUGHN, TSH, T7 ####[facility] Wsoszgplpj8167 [address] Rhonda Globulin Calculated mass conc (S) 3.1 g/dL Normal [facility] Comment on above: Performed By: #### C MP, LIPA, DEVAUGHN, TSH, T7 ####[facility] Rwkrdwmsxy2489 [address] Rhonda Glucose mass conc 98 mg/dL Normal 74-106 [facility] Comment on above: Performed By: #### C MP, LIPA, DEVAUGHN, TSH, T7 ####[facility] Owjirnwqwi4860 [address] Rhonda Potassium molar conc 4.2 mmol/L Normal 3.4-5.0 [facility] Comment on above: Performed By: #### C MP, LIPA, DEVAUGHN, TSH, T7 ####[facility] Gyvouuuatv[address]7 [address] Rhonda Protein mass conc 7.6 g/dL Normal 6.1-8.2 [facility] Comment on above: Performed By: #### C MP, LIPA, DEVAUGHN, TSH, T7 ####[facility] Bjmhmeptdp2675 [address] Rhonda Sodium molar conc 135 mmol/L Critically low 137-145 [facility] Comment on above: Performed By: #### C MP, LIPA, DEVAUGHN, TSH, T7 ####[facility] [address] [place] [address] Rhonda Urea nitrogen mass conc 18.0 mg/dL Normal 9.0-20.0 [facility] Comment on above: Performed By: #### C MP, LIPA, DEVAUGHN, TSH, T7 ####[facility] [address] [place] [address] Rhonda Urea nitrogen/Creatinine mass ratio 17.5 mg/mg Normal [facility] Comment on above: Performed By: #### C MP, LIPA, DEVAUGHN, TSH, T7 ####[facility] [address] [place] [address] Rhonda TSHon 07-09-2018 Thyrotropin Qn 1.741 uIU/mL Normal 0.470-4.680 [facility] Comment on above: Performed By: #### C MP, LIPA, DEVAUGHN, TSH, T7 ####[facility] [address] [place] [address] Rhonda Thyrotropin Qn SEE BELOW Normal [facility] Comment on above: Result Comment: <0.3 4 UIU/ml HYPERTHYROID 0.34-5.60 UIU/ml EUTHYROID >5.60 UIU/ml HYPOTHYROID Performed By: #### C MP, LIPA, DEVAUGHN, TSH, T7 ####[facility] [address] [place], [place] [address]LfjvodStacia Ellis Encounters Encounter Date Encounter Type Care Provider Facility Start: 07-09-2018 End: 07-10-2018 Patient encounter procedure NAVNEET MARTINEZ Facility:[facility] Start: 02-24-2018 Patient encounter procedure NAVNEET MARTINEZ Facility:[facility] Payers Date Payer Category Payer Unknown [id number] 1990 Unknown [id number] 1958 Private Health Insurance [id number] Summary Purpose Family History No Family History Records FoundNo Family History Records Found Advance Directives No Advanced Directives Records FoundNo Advanced Directives Records Found Additional Source Comments (unrecognized sect ion and content) No Status Records FoundNo Status Records Found INFORMATION SOURCE (unrecogn ized section and content) DATE CREATED AUTHOR 07/23/2018 [facility] pital DATE CREATED AUTHOR AUTHOR'S ORGANIZ ATION 09/30/2021 [facility] FOR RECORDS PERTAINING TO PATIENTS WHO [...] BE BASED ON THE PRIMARY CLINICAL RECORDS. [employer] provides no warranty or guarantee of the accuracy or completeness of information in this document.
--- OUTSIDE RECORDS SUMMARY | 2024-12-21 09:17 | XMS_ITS | CCD ---
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 Role Phone HOY, NAVNEET Unavailable Unavailable [...] XR chest 1Von 08-29-2021 XR chest 1V [facility] Main [place] [id number] XRay Report Signed Patient: Adama Morocho MR#: [id number] : 1990 Acct:[id number] Age/Sex: 31 / M ADM Date: 08/29/21 [...] Shane Jr., D.OGurpreet08/29/2021 2:32 PM Dictation Location: [place] [address] Transcribed By: [facility] 08/29/211431 Dictated By: Jose A Shane Jr, DO 08/29/21 143 Signed By: 08/29/21 143 [facility] AMYLASEon 07-09-2018 Amylase enzyme act/vol 60 U/L Normal 31-110 [facility] Comment on above: Performed By: #### C MP, LIPA, DEVAUGHN, TSH, T7 ####[facility] [address] [place], [place] [address]Hwkgla Rhonda CBC AUTO DIFFon 07-09-2018 Basophils Auto #/vol (Bld) 0.0 103/ul Normal 0.0-0.1 [facility] Comment on above: Performed By: #### C BC ####[facility] [address] [place] [address]Ehcktd Rhonda Basophils/100 WBC Auto (Bld) 0.4 % Normal 0.2-2.0 [facility] Comment on above: Performed By: #### C BC ####[facility] [address] [place] [address]Lkttwg Rhonda Eosinophils Auto #/vol (Bld) 0.2 103/ul Normal 0.0-0.7 [facility] Comment on above: Performed By: #### C BC ####[facility] [address] [place] [address]Aymdbg Rhonda Eosinophils/100 WBC Auto (Bld) 2.1 % Normal 0.9-7.0 [facility] Comment on above: Performed By: #### C BC ####[facility] [address] [place], [place] [address]Ldflgj Rhonda Erythrocyte distribution width Auto Ratio (RBC) 12.8 % Normal 11.0-15.0 [facility] Comment on above: Performed By: #### C BC ####[facility] [address] [place] [address] 77178Srthav Rhonda Hematocrit Auto Volume Fraction (Bld) 42.9 % Normal 42.0-54.0 [facility] Comment on above: Performed By: #### C BC ####[facility] [address] [place] [id number] Rhonda Hemoglobin mass conc (Bld) 15.3 g/dL Normal 14.0-18.0 [facility] Comment on above: Performed By: #### C BC ####[facility] [address] [place] [id number] Rhonda IG # 0.02 10e3/ul Normal 0.00-0.03 [facility] Comment on above: Performed By: #### C BC ####[facility] [address] [place] [address] Rhonda IG % 0.3 % Normal 0.0-0.5 [facility] Comment on above: Performed By: #### C BC ####[facility] [address] [place] [address] Rhonda Lymphocytes Auto #/vol (Bld) 2.3 103/ul Normal 1.2-3.8 [facility] Comment on above: Performed By: #### C BC ####[facility] [address] [place] [address] Rhonda Lymphocytes/100 WBC Auto (Bld) 32.0 % Normal 20.5-60.0 [facility] Comment on above: Performed By: #### C BC ####[facility] [address] [place] [address] Rhonda MANUAL DIFF REQ NO Normal [facility] Comment on above: Performed By: #### C BC ####[facility] [address] [place], [place] [address]Gerken Rhonda MCH Auto Entitic mass (RBC) 30.6 pg Normal 25.9-34.0 [facility] Comment on above: Performed By: #### C BC ####[facility] [address] [place] [address] Rhonda MCHC Auto mass conc (RBC) 35.7 g/dL Critically high 29.9-35.2 [facility] Comment on above: Performed By: #### C BC ####[facility] [address] [place], [place] [address]Ekdaet Rhonda MCV Auto Entitic volume (RBC) 85.8 fL Normal 80.0-94.0 [facility] Comment on above: Performed By: #### C BC ####[facility] [address] [place] [address] 540[address]Lnvuaw Rhonda Monocytes Auto #/vol (Bld) 0.7 103/ul Normal 0.3-0.8 [facility] Comment on above: Performed By: #### C BC ####[facility] [address] [place] [address]Icwcul Rhonda Monocytes/100 WBC Auto (Bld) 9.5 % Normal 1.7-12.0 [facility] Comment on above: Performed By: #### C BC ####[facility] [address] [place] [address]Prvxxa Rhonda Neutrophils Auto #/vol (Bld) 4.0 103/ul Normal 1.4-6.5 [facility] Comment on above: Performed By: #### C BC ####[facility] [address] [place] [address]Fcjhrk Rhonda Neutrophils/100 WBC Auto (Bld) 55.7 % Normal 43.0-75.0 [facility] Comment on above: Performed By: #### C BC ####[facility] [address] [place] [address] 226[address]Tpqlez Rhonda Platelet mean volume Auto Entitic volume (Bld) 9.4 fL Critically low 9.5-13.5 [facility] Comment on above: Performed By: #### C BC ####[facility] [address] [place] [address]Qugmwq Rhonda Platelets Auto #/vol (Bld) 223 103/ul Normal 150-450 [facility] Comment on above: Performed By: #### C BC ####[facility] [address] [place] [address]Fmzuhn Rhonda RBC Auto #/vol (Bld) 5.00 106/ul Normal 4.70-6.10 [facility] Comment on above: Performed By: #### C BC ####[facility] T[address]rz[address] WBC Auto #/vol (Bld) 7.2 103/ul Normal 4.0-11.0 [facility] Comment on above: Performed By: #### C BC ####[facility] [address] [place] [address] FREE THYROXINE INDEX T7on FTI 2.[address] [facility] Comment on above: Performed By: #### C MP, LIPA, DEVAUGHN, TSH, T7 ####[facility] Ym[address]ulgzfd1603 [address] T3U 32.0 % Normal 23.5-40.5 [facility] Comment on above: Performed By: #### C MP, LIPA, DEVAUGHN, TSH, T7 ####[facility] [address] [place] [address] T4 8.00 ug/dL Normal 5.53-11.00 [facility] Comment on above: Performed By: #### C MP, LIPA, DEVAUGHN, TSH, T7 ####[facility] [address] [place] [address] GLYCOHEMOGLOBIN A1Con 2017 Glucose mass conc 97 mg/dL Normal [facility] Comment on above: Performed By: #### A 1C ####[facility] [address] [place] [address] Hemoglobin A1c/Hemoglobin.total mass fraction (Bld) 5.0 % Normal <=6.0 [facility] Comment on above: Performed By: #### A 1C ####[facility] [address] [place] [address] LIPASEon 07-09-2018 Lipase enzyme act/vol 192.0 U/L Normal 23.0-300.0 [facility] Comment on above: Performed By: #### C MP, LIPA, DEVAUGHN, TSH, T7 ####[facility] [address] [place], [place] [address]ken Rhonda PROF 14(COMP METB)on 018 Albumin mass conc 4.5 g/dL Normal 3.5-5.0 [facility] Comment on above: Performed By: #### C MP, LIPA, DEVAUGHN, TSH, T7 ####[facility] T[address] Rhonda Albumin/Globulin mass ratio 1.5 {ratio} Normal [facility] Comment on above: Performed By: #### C MP, LIPA, DEVAUGHN, TSH, T7 ####[facility] Wnpsjivbsy[address]446 [address] Rhonda ALP enzyme act/vol 45 U/L Normal 38-126 [facility] Comment on above: Performed By: #### C MP, LIPA, DEVAUGHN, TSH, T7 ####[facility] Xzg[address]zgp[address]94 [address] Rhonda ALT enzyme act/vol 45 U/L Normal 21-72 [facility] Comment on above: Performed By: #### C MP, LIPA, DEVAUGHN, TSH, T7 ####[facility] Zghxashzau[address] Rhonda Anion gap 3 molar conc 11.7 mmol/L Normal [facility] Comment on above: Performed By: #### C MP, LIPA, DEVAUGHN, TSH, T7 ####[facility] Y[address]jvqxhc[address]35 [address] Rhonda AST enzyme act/vol 26 U/L Normal 17-59 [facility] Comment on above: Performed By: #### C MP, LIPA, DEVAUGHN, TSH, T7 ####[facility] Soun[address]zlzue5236 [address] Rhonda Bilirubin Ql (U) 0.5 mg/dL Normal 0.2-1.[address] [facility] Comment on above: Performed By: #### C MP, LIPA, DEVAUGHN, TSH, T7 ####[facility] [address] [place] [id number] Rhonda Calcium mass conc 8.9 mg/dL Normal 8.4-10.2 [facility] Comment on above: Performed By: #### C MP, LIPA, DEVAUGHN, TSH, T7 ####[facility] Z[address]vsaeaijn[address]125 [address] Rhonda Chloride molar conc 101 mmol/L Normal 98-107 [facility] Comment on above: Performed By: #### C MP, LIPA, DEVAUGHN, TSH, T7 ####[facility] Nce[address]fwgs[address]16 [address] Rhonda CO2 molar conc 26.5 mmol/L Normal 22.0-30.0 [facility] Comment on above: Performed By: #### C MP, LIPA, DEVAUGHN, TSH, T7 ####[facility] [address] [place] [address] Rhonda Creatinine mass conc 1.03 mg/dL Normal 0.66-1.25 [facility] Comment on above: Performed By: #### C MP, LIPA, DEVAUGHN, TSH, T7 ####[facility] Ypnzekaspp[address]262 [address] Rhonda EGFR-AF SRI LANKAN >60 Normal >=60 [facility] Comment on above: Performed By: #### C MP, LIPA, DEVAUGHN, TSH, T7 ####[facility] F[address]kt[address] Rhonda EGFR-NON AF SRI LANKAN >60 Normal >=60 [facility] Comment on above: Performed By: #### C MP, LIPA, DEVAUGHN, TSH, T7 ####[facility] Ds[address]qm[address]68 [address] Rhonda Globulin Calculated mass conc (S) 3.1 g/dL Normal [facility] Comment on above: Performed By: #### C MP, LIPA, DEVAUGHN, TSH, T7 ####[facility] Oxzxdsfbyx[address]47 [address] Rhonda Glucose mass conc 98 mg/dL Normal 74-106 [facility] Comment on above: Performed By: #### C MP, LIPA, DEVAUGHN, TSH, T7 ####[facility] Vuxxvestpr7160 [address] Rhonda Potassium molar conc 4.2 mmol/L Normal 3.4-5.0 [facility] Comment on above: Performed By: #### C MP, LIPA, DEVAUGHN, TSH, T7 ####[facility] Xtsivoffke3034 [address] Rhonda Protein mass conc 7.6 g/dL Normal 6.1-8.2 [facility] Comment on above: Performed By: #### C MP, LIPA, DEVAUGHN, TSH, T7 ####[facility] [address] Rhonda Sodium molar conc 135 mmol/L Critically low 137-145 [facility] Comment on above: Performed By: #### C MP, LIPA, DEVAUGHN, TSH, T7 ####[facility] [address] [place] [address] Rhonda Urea nitrogen mass conc 18.0 mg/dL Normal 9.0-20.0 [facility] Comment on above: Performed By: #### C MP, LIPA, DEVAUGHN, TSH, T7 ####[facility] [address] [place] [address] Rhonda Urea nitrogen/Creatinine mass ratio 17.5 mg/mg Normal [facility] Comment on above: Performed By: #### C MP, LIPA, DEVAUGHN, TSH, T7 ####[facility] [address] [place] [address] Rhonda TSHon 07-09-2018 Thyrotropin Qn 1.741 uIU/mL Normal 0.470-4.680 [facility] Comment on above: Performed By: #### C MP, LIPA, DEVAUGHN, TSH, T7 ####[facility] [address] [place] [address] Rhonda Thyrotropin Qn SEE BELOW Normal [facility] Comment on above: Result Comment: <0.3 4 UIU/ml HYPERTHYROID 0.34-5.60 UIU/ml EUTHYROID >5.60 UIU/ml HYPOTHYROID Performed By: #### C MP, LIPA, DEVAUGHN, TSH, T7 ####[facility] [address] [place], [place] [address]SwgbszStacia Ellis Encounters Encounter Date Encounter Type Care Provider Facility Start: 07-09-2018 End: 07-10-2018 Patient encounter procedure NAVNEET MARTINEZ Facility:[facility] Start: 02-24-2018 Patient encounter procedure NAVNEET MARTINEZ Facility:[facility] Payers Date Payer Category Payer Unknown [id number] [id number] 1990 Unknown [id number] 1958 Private Health Insurance [id number] Summary Purpose Family History No Family History Records FoundNo Family History Records Found Advance Directives No Advanced Directives Records FoundNo Advanced Directives Records Found Additional Source Comments (unrecognized sect ion and content) No Status Records FoundNo Status Records Found INFORMATION SOURCE (unrecogn ized section and content) DATE CREATED AUTHOR 07/23/2018 [facility] pital DATE CREATED AUTHOR AUTHOR'S ORGANIZ ATION 09/30/2021 [facility] FOR RECORDS PERTAINING TO PATIENTS WHO ARE [...] BE BASED ON THE PRIMARY CLINICAL RECORDS. [employer] provides no warranty or guarantee of the accuracy or completeness of information in this document.
== END 2024-12-14 08:57 | disposition home or self-care (01) ==
PROVIDERS: PCP Family Medicine; Visit Provider Family Medicine
DX: Z00.00 Encounter for general adult medical examination without abnormal findings (principal); Z12.5 Encounter for screening for malignant neoplasm of prostate
CPT/HCPCS: 36415; 80053; 80061; 83036; 84403; 84436; 84443; 84481; 85025; G0103